=== PATIENT | male | born 1950 | race Two or more races ===

== ENCOUNTER 2017-06-04 08:36 | Day surgery (SDC) | payer MEDICARE, MEDICAID | END 2017-06-04 11:56 | disposition home or self-care (01) | LOC: DS 08:36 | PROVIDERS: ATTEND Surgery | DX: K63.89 Other specified diseases of intestine (principal); K57.30 Diverticulosis of large intestine without perforation or abscess without bleeding; K64.3 Fourth degree hemorrhoids; I10 Essential (primary) hypertension; Z87.891 Personal history of nicotine dependence; Z80.0 Family history of malignant neoplasm of digestive organs | CPT/HCPCS: 45380; 88305 ×2; J2704; J3490 ==